=== PATIENT | female | born 1985 | race African-American/Black ===

== ENCOUNTER → 2016-04-25 | Outpatient (CLI) | payer BC, MEDICAID ==
[~2016-04-25] MED LIST: COLACE-DPS100 MG PO; MOTRIN-DPS800 MG PO; PRENATAL VIT1 TAB PO; TYLENOL EXTRA500 M1 PO
== END | disposition home or self-care (01) ==
LOC: EDT 04-24 10:00
DX: O24.419 Gestational diabetes mellitus in pregnancy, unspecified control (principal)

== ENCOUNTER 2016-06-26 20:35 | Observation (INO) | payer BC, MEDICAID ==
[~2016-06-26] VITALS: Ht 165.1 cm; Wt 115.4 kg
[2016-06-28] MEDS ORDERED: PRENATAL VIT1 TAB PO (11:52)
[2016-07-01] MEDS ORDERED: PRENATAL VIT1 TAB PO (16:54)
[2016-07-01] MEDS ORDERED: TYLENOL EXTRA500 M1 PO (16:54)
[2016-07-01] MEDS ORDERED: MOTRIN-DPS800 MG PO (16:54)
[2016-07-09] MEDS ORDERED: COLACE-DPS100 MG PO (08:08)
== END 2016-06-27 10:10 | disposition home or self-care (01) ==
LOC: BC 20:35 → 2LDRP 20:35 → BC 07-14 08:00
PROVIDERS: ADMIT Obstetrics & Gynecology
DX: O47.1 False labor at or after 37 completed weeks of gestation (principal); Z3A.37 37 weeks gestation of pregnancy; Z90.49 Acquired absence of other specified parts of digestive tract

== ENCOUNTER 2016-06-29 12:40 | Inpatient (IN) | payer BC, MEDICAID ==
[~2016-06-29] VITALS: Ht 165.1 cm; Wt 114.8 kg
--- NOTE | ~2016-06-29 | FD ---
ADMIT: 06/29/2016 RM/LOC: 219 [facility] MR#: [id number] 2620 [facility] [address] [place] [id number] COURTNEY WALLACE [address] [address] Final Diagnosis SEX: F AGE: 31 : 1985 ADMISSION DATE: 06/29/2016 DISCHARGE DATE: 06/30/2016 FINAL DIAGNOSIS: 1. Intrauterine at term. 2. Gestational diabetes, A1. 3. History of recurrent second trimester loss. PROCEDURE: Spontaneous vaginal delivery. Josefina Sosa MD/ belén JOB #: [id number] CC: No Shepard MD, Attending Physician No Shepard MD, Family Physician
--- NOTE | ~2016-06-29 | HP ---
ADMIT: 06/29/2016 RM/LOC: 219 [facility] MR#: [id number] [facility]#: [id number] 2620 [facility] [address] [place], [place] [address] COURTNEY WALLACE [address] [address] History and Physical SEX: F AGE: 31 : 1985 DATE OF SERVICE: REASON FOR ADMISSION: Contractions. HISTORY OF PRESENT ILLNESS: The patient is a 31-year-old, 7, para 3-0- 3-3, who presented to Labor and Delivery at 37-6/7th weeks' gestation with complaints of contractions. The patient's had been complicated by gestational diabetes, which has been diet controlled. The patient also had a history of two 16-week deliveries and had cerclage placed during this . The patient also used progesterone suppositories throughout the . The patient did have the cerclage removed at 36 weeks. At admission, she complained of contractions. She denied any vaginal bleeding or loss of fluid. LABORATORY DATA: Blood type O positive, antibody screen negative, RPR nonreactive, rubella immune, group B Strep negative, HIV negative, gonorrhea and chlamydia negative, hepatitis B surface antigen negative. PAST MEDICAL HISTORY: Noncontributory. PAST SURGICAL HISTORY: Cholecystectomy in 2012. CURRENT MEDICATIONS: vitamins daily. ALLERGIES: NO KNOWN MEDICAL ALLERGIES. FAMILY HISTORY: Noncontributory. SOCIAL HISTORY: The patient is single. She denies any alcohol, tobacco, or drug use. PHYSICAL EXAMINATION: VITAL SIGNS: On admission, blood pressure 110/70, pulse 107, temperature 96.8, respirations 18. GENERAL: The patient is alert and oriented, no acute distress. HEART: Regular rate and rhythm without murmurs, gallops, or rubs. LUNGS: Clear to auscultation bilaterally. ABDOMEN: Soft, nontender, gravid. EXTREMITIES: No edema. No calf tenderness. ADMIT: 06/29/2016 RM/LOC: 219 [facility] MR#: [id number] 2620 [facility] [address] [place], [place] [id number] COURTNEY WALLACE [address] [place], [place] [id number] History and Physical SEX: F AGE: 31 : 1985 heart tones are in the 140s with moderate variability and accelerations present. Contractions are irregular. Cervix 7 cm dilated, 90% effaced, and - 1 station. ASSESSMENT AND PLAN: 1. A 31-year-old, 7, para 3-0-3-3 at 37-6/7th weeks' gestation. 2. Active labor. Plan to admit in labor and we will anticipate a spontaneous vaginal delivery. 3. Gestational diabetes, diet controlled. The patient will be started on diabetic labor protocol. 4. History of two 16-week losses. The patient's cerclages were removed at 36 weeks. Josefina Sosa MD/ medardo JOB #: [id number] CC: No Shepard MD, Attending Physician No Shepard MD, Family Physician
[~2016-06-29 12:40] MED LIST changes: -COLACE-DPS100 MG PO; -MOTRIN-DPS800 MG PO; -TYLENOL EXTRA500 M1 PO
[2016-07-01] MEDS ORDERED: TYLENOL EXTRA500 M1 PO (16:54)
[2016-07-01] MEDS ORDERED: PRENATAL VIT1 TAB PO (16:54)
[2016-07-01] MEDS ORDERED: MOTRIN-DPS800 MG PO (16:54)
[2016-07-09] MEDS ORDERED: COLACE-DPS100 MG PO (08:08)
--- NOTE | 2016-07-13 07:58 | OR ---
ADMIT: 06/29/2016 RM/LOC: 219 [facility] MR#: [id number] 2620 [facility] [address] [place], [place] [id number] COURTNEY WALLACE [address] [address] Operative/Delivery Room Report SEX: F AGE: 31 : 1985 CORRECTED: 07/03/2016 1107 DJS SURGERY DATE: 06/29/2016 SURGEON: Josefina Sosa MD NAME OF PROCEDURE: Spontaneous vaginal delivery. PREOPERATIVE DIAGNOSES: 1. Intrauterine at 37-6/7th weeks' gestation. 2. Gestational diabetes, type A1. 3. History of two 16-week losses with cerclage placed during the and progesterone supplementation, status post cerclage removal. POSTOPERATIVE DIAGNOSES: 1. Intrauterine at 37-6/7th weeks' gestation. 2. Gestational diabetes, type A1. 3. History of two 16-week losses with cerclage placed during the and progesterone supplementation, status post cerclage removal. FINDINGS: Liveborn male , scores 8 at 1 minute, 9 at 5 minutes. Weight 7 pounds 6 ounces. ESTIMATED BLOOD LOSS: 250 mL. ANESTHESIA: Local infiltration, 1% lidocaine. COMPLICATIONS: Precipitous delivery. INDICATIONS FOR PROCEDURE: The patient is a 31-year-old, 7, para 3-0- 3-3, who presented to Labor and Delivery at 37-6/7th weeks' gestation with complaints of contractions. The patient had a cerclage placed early in the due to history of two 16-week losses. The patient remained stable with cerclage and was placed on progesterone supplementation until 36 weeks and cerclage was removed. The patient was noted to be 7 cm dilated on admission and was admitted in active labor. The patient's has also been complicated by type A1 gestational diabetes. The patient progressed to labor completely dilated. At that point, she had artificial rupture of membranes performed and clear fluid was noted. The patient then pushed bringing the infant's vertex to the perineum. DESCRIPTION OF PROCEDURE: The patient was noted to spontaneously push and the delivered precipitously. The was placed on mother's abdomen. I ADMIT: 06/29/2016 RM/LOC: 219 [facility] MR#: [id number] [address] [place] [id number] [place], [place] [id number] [place] COURTNEY A [address] [facility] [address] [address] Operative/Delivery Room Report SEX: F AGE: 31 : 1985 entered the room at this point. The cord was clamped and cut. The infant was handed off to the warmer. Nursing personnel were in attendance. Twenty units of Pitocin were placed in IV bag to firm the uterus. The placenta delivered intact spontaneously. The cervix was examined and was noted to be free of lacerations. The vaginal vault and perineum were examined and there was noted to be a small first degree laceration which was bleeding, so this was repaired with a single [id number] stitch of 2-0 Vicryl after local infiltration of 1% lidocaine. The patient tolerated the procedure well. All sponge and needle counts were correct. The patient and infant recovered in the room in stable condition. Josefina Sosa MD/ medardo JOB #: [id number] CC: No Shepard MD, Attending Physician No Shepard MD, Family Physician CORRECTED: 07/03/2016 1107 DJS
== END 2016-06-30 19:15 | disposition home or self-care (01) | DRG 775 ==
LOC: 2LDRP 12:40 → BC 12:40 → 2LDRP 12:41 → BC 12:41 → 2LDRP 15:29 → BC 07-14 11:41
PROVIDERS: ADMIT Obstetrics & Gynecology
PROC: 10907ZC Drainage of Amniotic Fluid, Therapeutic from Products of Conception, Via Natural or Artificial Opening (ICD-10-PCS; principal; 2016-06-29)
PROC: 10E0XZZ Delivery of Products of Conception, External Approach (ICD-10-PCS; principal; 2016-06-29)
PROC: 0HQ9XZZ Repair Perineum Skin, External Approach (ICD-10-PCS; principal; 2016-06-29)
DX: O24.420 Gestational diabetes mellitus in childbirth, diet controlled (principal); O62.3 Precipitate labor; O70.0 First degree perineal laceration during delivery; Z3A.37 37 weeks gestation of pregnancy; Z37.0 Single live birth

== ENCOUNTER 2016-07-05 23:16 | Observation (INO) | payer BC, MEDICAID ==
[~2016-07-05 23:16] MED LIST changes: +MOTRIN-DPS800 MG PO; +TYLENOL EXTRA500 M1 PO
[2016-07-09] MEDS ORDERED: COLACE-DPS100 MG PO (08:08)
== END 2016-07-07 16:10 | disposition home or self-care (01) ==
DX: O72.2 Delayed and secondary postpartum hemorrhage (principal); D62 Acute posthemorrhagic anemia; N71.9 Inflammatory disease of uterus, unspecified; Z90.49 Acquired absence of other specified parts of digestive tract